=== PATIENT | female | born 1980 | race African-American/Black ===

== ENCOUNTER 2020-05-11 10:40 | Outpatient (REF) | payer OTHER, SELFPAY ==
--- NOTE | 2020-05-11 10:46 | XR_ITS ---
EXAMINATION: XR ANKLE, LEFT XR FOOT, LEFT CLINICAL INFORMATION: Left ankle injury. Left foot injury. COMPARISON: 10/31/2018 TECHNIQUE: 3 views of the left foot. 2 additional views of the left ankle. FINDINGS: Left foot: No fracture or dislocation. Alignment is anatomic. Joint spaces are maintained. The soft tissues are unremarkable. Left ankle: No fracture or dislocation. The ankle mortise is congruent. No ankle joint effusion. The soft tissues are unremarkable. XR/XR ankle LT 2V IMPRESSION: No fracture or malalignment involving the left ankle or foot.
--- NOTE | 2020-05-11 10:46 | XR_ITS ---
EXAMINATION: XR ANKLE, LEFT XR FOOT, LEFT CLINICAL INFORMATION: Left ankle injury. Left foot injury. COMPARISON: 10/31/2018 TECHNIQUE: 3 views of the left foot. 2 additional views of the left ankle. FINDINGS: Left foot: No fracture or dislocation. Alignment is anatomic. Joint spaces are maintained. The soft tissues are unremarkable. Left ankle: No fracture or dislocation. The ankle mortise is congruent. No ankle joint effusion. The soft tissues are unremarkable. XR/XR foot LT min 3V IMPRESSION: No fracture or malalignment involving the left ankle or foot.
== END 2020-05-11 10:41 | disposition home or self-care (01) ==
LOC: HO.HMGCX 10:40
PROVIDERS: PCP Internal Medicine; Visit Provider Internal Medicine
DX: S99.922A Unspecified injury of left foot, initial encounter (principal)
CPT/HCPCS: 73600; 73630

== ENCOUNTER 2020-05-29 08:37 | Emergency (ER) | payer OTHER, SELFPAY ==
[2020-05-29 09:10] VITALS: BP 114/71; PULSE 88; RESP 16; TEMP 36.6; O2SAT 98; BMI 21.4
--- NOTE | 2020-05-29 09:29 | ED_ITS ---
HPI - Skin/Abscess/Foreign Bdy General Chief complaint: Skin/Abscess/Foreign Body Stated complaint: breast pain Time Seen by Provider: 05/29/20 08:55 Source: patient Mode of arrival: ambulatory History of Present Illness HPI narrative: 40-year-old female with past medical history of bipolar, left breast abscess/ pain, narcotic dependence, presenting to ED complaining of continued acute on chronic left breast pain. [facility] send patient to ED. Reports used to follow w/Dr. Garcia, however was discharged from service, scheduled to see pain management in June referral from PCP. PCP has been managing pts pain with oxycodone. reports chronic /intermittent drainage from left breast. Denies injury/trauma, fever/chills MD complaint: other Related Data Home Medications Medication Instructions Recorded Confirmed fluorometholone 0.1 % eye drp OPHTHALMIC (EYE) 04/11/20 05/09/20 drops,suspension levonorgestrel 20 mcg/24 hours (6 0 device VAGINAL ONCE 04/11/20 05/09/20 yrs) 52 mg intrauterine device medroxyprogesterone 10 mg tablet mg PO 04/11/20 05/09/20 meloxicam 7.5 mg tablet 7.5 mg PO DAILY 04/11/20 05/09/20 Allergies Allergy/AdvReac Type Severity Reaction Status Date / Time aspirin [ASA] Allergy Unknown ANAPHYLAXIS Verified 05/09/20 15:28 quetiapine [From SEROQUEL] Allergy Unknown TACHYCARDIA Verified 05/09/20 15:28 seafood Allergy Unknown Anaphylaxis Verified 05/09/20 15:28 trazodone [TRAZODONE] Allergy Unknown SWELLING, Verified 05/09/20 15:28 inadequate response, inadequate response risperidone [Risperdal] AdvReac Unknown inadequate Verified 05/09/20 15:28 response Review of Systems Review of Systems: Constitutional: No Weight loss, No Fever, No Chills Cardiovascular: No Chest Pain, No SOB Respiratory: No Cough Musculoskeletal: No joint pain, No Myalgias, No Joint Swelling Skin: No skin lesions, No rash, +L breast pain Yes all other systems are reviewed and are negative PMFSH Past Medical History Attestation statement: The following information was validated with the patient. Medical History (Updated 05/29/20 @ 09:29 by JOE Thomson) Bipolar 1 disorder Breast abscess Breast pain, left Injury of foot, right Left eye trauma Narcotic dependence Pain management Plantar warts Right ankle injury Subareolar breast abscess Tobacco abuse Surgical History History of section History of sinus surgery History of tubal ligation Family History Family History Father Diabetes mellitus Mother No problems noted. Maternal Grandfather No problems noted. Maternal Grandmother HTN (hypertension) Cancer Breast cancer History of mastectomy Paternal Grandmother Stroke Paternal Grandfather No problems noted. Maternal Aunt Diabetes mellitus HTN (hypertension) Maternal Uncle No problems noted. Paternal Aunt No problems noted. Paternal Uncle Cancer Throat cancer Lung cancer Brother No problems noted. Sister No problems noted. Sister No problems noted. Sister No problems noted. Son No problems noted. Daughter No problems noted. Daughter No problems noted. Social History Social History Alcohol intake: never Smoking Status: Current every day smoker Cigarettes Per Day: 3 Advance Directives: No Advance Directives Information Provided: No Physical Exam Vital Signs: Vital Signs: Last Vital Signs Temp 98 F 05/29/20 09:10 Pulse 88 05/29/20 09:10 Resp 16 05/29/20 09:10 BP 114/71 05/29/20 09:10 Pulse Ox 98 05/29/20 09:10 Body Mass Index 21.4 Const: General: cooperative and healthy appearing Orientation/consciousness: patient oriented x3 Limitations: no limitations HENMT: Head: Yes normal to inspection Ears: hearing grossly normal bilaterally General nose exam: Normal external nose present Face and sinus: Yes normal facial exam Eyes: General: appearance normal, both eyes and all related structures EOM: EOMs intact bilaterally Neck: Neck: Yes normal visual inspection and Yes no meningeal signs Chest: Other: left nipple with chronic postsurgical skin changes. +ttp to L areola, no cellulitis /erythema, no fluctuance or induration. No expressible drainage. No appreciable masses or lymphadenopathy Resp: Effort & Inspection: normal respiratory effort Cardio: Rate: regular rate GI: Inspection: Yes normal to inspection Skin: Rashes: no rashes Wounds: no wounds Neuro: General: patient oriented x3 and no meningeal signs Gait exam (Neuro): Normal gait present Extrem: General: Yes normal to inspection Course Course Course Narrative: -discussed with patient at length she needs follow-up with her primary care doctor & pain management as was just given 90 pills of Oxycodone on 05/09/2020 and should not be out yet -patient unhappily left the emergency department after I informed her I would not refill her opiate pain medication MDM - Skin/Abscess/Foreign Bdy MDM Narrative Medical decision making narrative: patient requesting more narcotic pain medication. No active signs of infection or expressible drainage Per chart review patient just received 90 pills of oxycodone on 05/09, had lengthy discussion with patient and aerial photograph interpreter stating cannot refill narcotic medications, needs to see PCP/pain management Discharge Plan Discharge Clinical Impression: Breast pain, left Patient Disposition: Home, Self-Care Additional Instructions: you need to follow-up with her primary care doctor and pain management You should also follow-up with your breast surgeon Prescriptions: No Action meloxicam 7.5 mg tablet 7.5 mg PO DAILY RF: 0 fluorometholone 0.1 % drops,suspension ophthalmic (eye) RF: 0 Mirena 20 mcg/24 hours (5 yrs) 52 mg intrauterine device 0 device vaginal ONCE RF: 0 medroxyprogesterone 10 mg tablet PO RF: 0 Referrals: Amadeo Alvarado MD [Primary Care Provider] - 2 days
--- NOTE | 2020-05-29 09:50 | PC.NURSE ---
per provider, pt immediately seen eloping following primary evaluation. this rn in to give discharge paperwork, pt not present in room or nearby restroom
== END 2020-05-29 09:53 | disposition home or self-care (01) ==
PROVIDERS: Emergency Provider Emergency Medicine; PCP Internal Medicine
DX: N64.4 Mastodynia (principal); Z76.5 Malingerer [conscious simulation]
CPT/HCPCS: 99283

== ENCOUNTER 2020-06-19 23:21 | Emergency (ER) | payer OTHER, SELFPAY ==
[2020-06-19 23:25] VITALS: BP 159/88; PULSE 72; RESP 18; TEMP 36.8; O2SAT 100; BMI 25.7
--- NOTE | 2020-06-20 | ECG_ITS ---
Test Reason : VOMITING Blood Pressure : / mmHG Vent. Rate : 053 BPM Atrial Rate : 053 BPM P-R Int : 186 ms QRS Dur : 078 ms QT Int : 456 ms P-R-T Axes : 081 022 032 degrees QTc Int : 427 ms Sinus bradycardia with sinus arrhythmia Otherwise normal ECG No previous ECGs available Referred By: Keely Day Electronically Signed By:JONI JIMENES
--- NOTE | 2020-06-20 00:09 | ED.GENADULT ---
HPI - General Adult General Chief complaint: General Medical Stated complaint: abd pain vomiting Time Seen by Provider: 06/19/20 23:33 Source: EMS Mode of arrival: EMS Limitations: no limitations History of Present Illness HPI narrative: Patient comes emergency room complaining pain. Initially, patient called EMS because she was complaining of right-sided breast pain. Patient states that she has not been taking her prescribed oxycodone because of the vomiting and she has been using marijuana to help her with the pain. Patient also has history of cyclical vomiting. Patient pulled out the IV line that EMS placed. When I spoke to the patient, she states that does not feel well, is nauseous, had vomiting, at this time denies breast pain. complaint: Vomiting Related Data Home Medications Medication Instructions Recorded Confirmed fluorometholone 0.1 % eye drp OPHTHALMIC (EYE) 04/11/20 06/06/20 drops,suspension levonorgestrel 20 mcg/24 hours (6 0 device VAGINAL ONCE 04/11/20 06/06/20 yrs) 52 mg intrauterine device medroxyprogesterone 10 mg tablet mg PO 04/11/20 06/06/20 meloxicam 7.5 mg tablet 7.5 mg PO DAILY 04/11/20 06/06/20 Previous Rx's Medication Instructions Recorded oxycodone 5 mg tablet 5 mg PO TID PRN 30 Days #90 tab 06/08/20 ondansetron HCl [Zofran] 4 mg PO Q6H PRN #14 tab 06/20/20 Allergies Allergy/AdvReac Type Severity Reaction Status Date / Time aspirin [ASA] Allergy Unknown ANAPHYLAXIS Verified 05/09/20 15:28 quetiapine [From SEROQUEL] Allergy Unknown TACHYCARDIA Verified 05/09/20 15:28 seafood Allergy Unknown Anaphylaxis Verified 05/09/20 15:28 trazodone [TRAZODONE] Allergy Unknown SWELLING, Verified 05/09/20 15:28 inadequate response, inadequate response risperidone [Risperdal] AdvReac Unknown inadequate Verified 05/09/20 15:28 response [facility] Past Medical History Medical History Bipolar 1 disorder Breast abscess Breast pain, left Injury of foot, right Left eye trauma Narcotic dependence Pain management Plantar warts Right ankle injury Subareolar breast abscess Tobacco abuse Surgical History History of section History of sinus surgery History of tubal ligation Family History Family History Father Diabetes mellitus Mother No problems noted. Maternal Grandfather No problems noted. Maternal Grandmother HTN (hypertension) Cancer Breast cancer History of mastectomy Paternal Grandmother Stroke Paternal Grandfather No problems noted. Maternal Aunt Diabetes mellitus HTN (hypertension) Maternal Uncle No problems noted. Paternal Aunt No problems noted. Paternal Uncle Cancer Throat cancer Lung cancer Brother No problems noted. Sister No problems noted. Sister No problems noted. Sister No problems noted. Son No problems noted. Daughter No problems noted. Daughter No problems noted. Social History Social History Alcohol intake: never Smoking Status: Current every day smoker Cigarettes Per Day: 3 Advance Directives: No Advance Directives Information Provided: No Physical Exam Vital Signs: Vital Signs: Last Vital Signs Temp 97.8 F 06/20/20 02:00 Pulse 43 L 06/20/20 02:00 Resp 16 06/20/20 02:00 BP 164/60 H 06/20/20 02:00 Pulse Ox 100 06/20/20 02:00 Body Mass Index 25.7 Course Course Course Narrative: When I walked into the patient's room, I personally saw the patient putting her fingers into her mouth and making herself vomit. The patient's nurse reports that before I walked in, the nurse had to ask the patient 4 times to not stick her fingers in her mouth. Per mass pat, patient had a prescription sent to the pharmacy on 06/08/[address] Amadeo Alvarado, for 90 tablets of oxycodone. Patient states that she still has several tablets and has been taking them as prescribed until today because of the vomiting. The patient's nurse states that she has to constantly remind the patient not to make herself vomit. Patient is NPO at this time, however patient keeps going to the bathroom and drinking water from the faucet and then self induces vomiting Toradol was given to the patient on arrival for pain, at this time, patient had not reported hematemesis. Pt stats that the last time that she vomited, she saw bloody streaks, no blood clots or isa blood. I did not see any visible blood in the last bag of vomit, but it was sent to the lab, it was positive for occult blood. Stool occult blood test was negative. Streaks of blood likely secondary to forceful retching, at this time, patient's hemoglobin is stable 13.3, a Malou Carter tear is not suspected at this time. H&H will be recheck in 2 hours. Patient was giving a GI cocktail and 1 tablet of oxycodone 5 mg which is the patient's home dose. Haldol IM x1 given, if better, pt may be d/c home H&H stable, chest x-ray shows no free air under the diaphragm. At this time, patient states that she is still nauseous, no abdominal pain Sign out given to Dr. House Medical Decision Making Lab Data Result diagrams: 06/20/20 02:45 06/20/20 00:24 Labs: Lab Results 06/20/20 06/20/20 06/20/20 Range/Units 00:18 00:24 00:24 WBC 10.9 H (4.8-10.8) X10*3/uL RBC 4.00 L (4.20-5.50) X10*6/uL Hgb 13.3 (12.0-16.0) g/dl Hct 38.8 (37-47) % MCV 97.0 (80-98) fL MCH 33.3 H (27.0-33.0) pg MCHC 34.3 (31.0-35.0) g/dl RDW 12.2 (11.0-16.0) % Plt Count 199 (160-400) X10*3/uL MPV 10.8 (9.4-12.3) fL Immature Gran % (Auto) 0.3 (0.0-0.4) % Neut % (Auto) 80.5 H (45-73) % Lymph % (Auto) 13.1 L (20-40) % [place] % (Auto) 4.9 (2-11) % Eos % (Auto) 0.5 (0-4) % Baso % (Auto) 0.7 (0-2) % Lymph # (Auto) 1.4 (1.2-4.9) X10*3/uL [place] # (Auto) 0.5 (0.1-1.2) X10*3/uL Eos # (Auto) 0.1 (0.0-0.4) X10*3/uL Baso # (Auto) 0.1 (0.0-0.2) X10*3/uL Abs Immat Gran (auto) 0.03 (0.00-0.03) X10*3/uL Absolute Neuts (auto) 8.8 H (2.0-8.3) X10*3/uL Absolute Nucleated RBC 0.000 (0.0-0.012) X10*3/uL Nucleated RBC % (auto) 0.0 (0.0-0.2) /100WBC Sodium 144 (135-145) mmol/L Potassium 3.8 (3.3-5.1) mmol/l Chloride 106 (96-108) mmol/L Carbon Dioxide 28 (22-29) mmol/L Anion Gap 14 (12-20) BUN 10 (9-16) mg/dL Creatinine 0.91 (0.5-1.4) mg/dL Estim Creat Clear Calc 69.2 Estimated GFR > 60 Random Glucose 131 H (60-115) mg/dL Calcium 9.3 (8.4-10.2) mg/dL Total Bilirubin 0.5 (0.0-1.0) mg/dL Direct Bilirubin 0.2 (0.0-0.5) mg/dL AST 40 H (5-31) U/L ALT 20 (0-31) U/L Alkaline Phosphatase 52 (39-117) U/L Total Protein 7.4 (6.5-8.0) g/dL Albumin 4.7 (3.5-5.0) g/dL Lipase 27 (8-78) U/L Gastric Occult Blood POS H (NEG) Stool Occult Blood (NEG) 06/20/20 06/20/20 Range/Units 02:45 02:45 WBC (4.8-10.8) X10*3/uL RBC (4.20-5.50) X10*6/uL Hgb 12.4 (12.0-16.0) g/dl Hct 36.5 L (37-47) % MCV (80-98) fL MCH (27.0-33.0) pg MCHC (31.0-35.0) g/dl RDW (11.0-16.0) % Plt Count (160-400) X10*3/uL MPV (9.4-12.3) fL Immature Gran % (Auto) (0.0-0.4) % Neut % (Auto) (45-73) % Lymph % (Auto) (20-40) % [place] % (Auto) (2-11) % Eos % (Auto) (0-4) % Baso % (Auto) (0-2) % Lymph # (Auto) (1.2-4.9) X10*3/uL [place] # (Auto) (0.1-1.2) X10*3/uL Eos # (Auto) (0.0-0.4) X10*3/uL Baso # (Auto) (0.0-0.2) X10*3/uL Abs Immat Gran (auto) (0.00-0.03) X10*3/uL Absolute Neuts (auto) (2.0-8.3) X10*3/uL Absolute Nucleated RBC (0.0-0.012) X10*3/uL Nucleated RBC % (auto) (0.0-0.2) /100WBC Sodium (135-145) mmol/L Potassium (3.3-5.1) mmol/l Chloride (96-108) mmol/L Carbon Dioxide (22-29) mmol/L Anion Gap (12-20) BUN (9-16) mg/dL Creatinine (0.5-1.4) mg/dL Estim Creat Clear Calc Estimated GFR Random Glucose (60-115) mg/dL Calcium (8.4-10.2) mg/dL Total Bilirubin (0.0-1.0) mg/dL Direct Bilirubin (0.0-0.5) mg/dL AST (5-31) U/L ALT (0-31) U/L Alkaline Phosphatase (39-117) U/L Total Protein (6.5-8.0) g/dL Albumin (3.5-5.0) g/dL Lipase (8-78) U/L Gastric Occult Blood (NEG) Stool Occult Blood NEG (NEG) Imaging Data Chest x-ray: Radiologist's impression: Cardiac leads overlie the chest. The lungs are well expanded. There is no focal consolidation, edema, or effusion. No pneumothorax. The cardiomediastinal silhouette is within normal limits. No acute osseous abnormality. No free air seen under the diaphragm. XR/XR chest 1V IMPRESSION: Clear lungs. No free intraperitoneal air noted. ECG Data Attestation: I personally reviewed and interpreted this ECG as follows: (Sinus bradycardia, heart rate 53, QTC 427, no ST segment depressions or inversions) Discharge Plan Discharge Clinical Impression: Cyclical vomiting Patient Disposition: Home, Self-Care Instructions: Cyclic Vomiting Syndrome (ED) Additional Instructions: Please follow-up with your primary care physician tomorrow. If you have any worsening or new symptoms, please return to the emergency room or call 911 Prescriptions: New ondansetron HCl [Zofran] 4 mg tablet 4 mg PO Q6H PRN (Reason: nausea and vomiting) Qty: 14 RF: 0 No Action oxycodone 5 mg tablet 5 mg PO TID PRN (Reason: pain) 30 Days Qty: 90 RF: 0 meloxicam 7.5 mg tablet 7.5 mg PO DAILY RF: 0 fluorometholone 0.1 % drops,suspension ophthalmic (eye) RF: 0 Mirena 20 mcg/24 hours (5 yrs) 52 mg intrauterine device 0 device vaginal ONCE RF: 0 medroxyprogesterone 10 mg tablet PO RF: 0
[2020-06-20] MEDS: 0.9 % Sodium Chloride 1,000 ML 999 ML IVCONT (00:29)
[2020-06-20] MEDS: Ketorolac Tromethamine 15 MG/ML VIAL IVPUSH (00:30)
[2020-06-20] MEDS: ondansetron HCL 4 MG/2 ML VIAL IVPUSH (00:30)
[2020-06-20 00:38] LABS: MANUAL DIFF FLAG NO
[2020-06-20 00:45] LABS: Basophils Absolute Auto 0.1 X10*3/uL (0.0-0.2); Basophils Percent Auto 0.7 % (0-2); Eosinophils Absolute Auto 0.1 X10*3/uL (0.0-0.4); Eosinophils Percent Auto 0.5 % (0-4); Hematocrit 38.8 % (37-47); Hemoglobin 13.3 g/dl (12.0-16.0); Imm Gran Abs Auto 0.03 X10*3/uL (0.00-0.03); Imm Gran Pct Auto 0.3 % (0.0-0.4); Lymphocytes Absolute Auto 1.4 X10*3/uL (1.2-4.9); Lymphocytes Percent Auto 13.1 % (20-40); Mean Corpuscular HGB Conc 34.3 g/dl (31.0-35.0); Mean Corpuscular Hemoglobin 33.3 pg (27.0-33.0); Mean Platelet Volume 10.8 fL (9.4-12.3); Monocytes Absolute Auto 0.5 X10*3/uL (0.1-1.2); Monocytes Percent Auto 4.9 % (2-11); Neutrophils Absolute Auto 8.8 X10*3/uL (2.0-8.3); Neutrophils Percent Auto 80.5 % (45-73); Platelet Count 199 X10*3/uL (160-400); Red Cell Distribution Width 12.2 % (11.0-16.0); White Blood Count 10.9 X10*3/uL (4.8-10.8)
[2020-06-20 01:02] LABS: GASOB Int Neg Ctl Valid YES
[2020-06-20 01:03] LABS: Alanine Aminotransferase 20 U/L (0-31); Albumin Level 4.7 g/dL (3.5-5.0); Alkaline Phosphatase 52 U/L (39-117); Anion Gap 14 (12-20); Aspartate Amino Transferase 40 U/L (5-31); Bilirubin Direct 0.2 mg/dL (0.0-0.5); Bilirubin Total 0.5 mg/dL (0.0-1.0); Blood Urea Nitrogen 10 mg/dL (9-16); Calcium 9.3 mg/dL (8.4-10.2); Carbon Dioxide 28 mmol/L (22-29); Chloride 106 mmol/L (96-108); Creatinine Clr Calc Pharmacy 69.2; Estimated Glomerular Filt Rate > 60; Glucose Random 131 mg/dL (60-115); Lipase 27 U/L (8-78); Potassium 3.8 mmol/l (3.3-5.1); Sodium 144 mmol/L (135-145); Total Protein 7.4 g/dL (6.5-8.0)
[2020-06-20 01:03] LABS: GASOB Int Pos Ctl Valid YES; GASOB Lot 20391; Occult Blood Gastric POS (NEG)
[2020-06-20 02:00] VITALS: BP 164/60; PULSE 43; RESP 16; TEMP 36.6; O2SAT 100
--- NOTE | 2020-06-20 02:00 | XR_ITS ---
Patient name: Melida Tatum Date of : 1980 EXAMINATION: XR CHEST CLINICAL INFORMATION: Rule out free air. COMPARISON: None TECHNIQUE: Frontal upright view of the chest was obtained. FINDINGS: Cardiac leads overlie the chest. The lungs are well expanded. There is no focal consolidation, edema, or effusion. No pneumothorax. The cardiomediastinal silhouette is within normal limits. No acute osseous abnormality. No free air seen under the diaphragm. XR/XR chest 1V IMPRESSION: Clear lungs. No free intraperitoneal air noted.
[2020-06-20] MEDS: Lidocaine HCl Viscous 2 % 15 ML SOLUTION MUCOUS MEM (02:23)
[2020-06-20] MEDS: Magnesium Hydrox/Alum Hydrox 30 ML ORAL.SUSP PO (02:23)
[2020-06-20] MEDS: Famotidine/PF 20 MG/2 ML VIAL IVPUSH (02:24)
[2020-06-20 02:54] LABS: Hematocrit 36.5 % (37-47); Hemoglobin 12.4 g/dl (12.0-16.0)
[2020-06-20 03:05] LABS: OBS Int Ctl Valid YES; OBS1 NEG (NEG)
[2020-06-20 04:00] VITALS: PULSE 41; RESP 16
[2020-06-20] MEDS: Haloperidol Lactate 5 MG/ML VIAL IM (04:04)
--- NOTE | 2020-06-20 04:10 | PC.NURSE ---
pt has severe nausea and vomiting persisiting after multiple dosages of zofran, phengan, and GI cocktail. Patient medicated with IM Haldo for Cyclical vomitng. Pt understands that she is barred from bathroom at this time. Physician previously enforced education to use bedside commode due to language barrier. monitoring for effect at this time.
--- NOTE | 2020-06-20 05:31 | PC.NURSE ---
pt now awake at this time. patient continues to attempt self inducing vomiting. patient reports the pain is too great. reduced stimulus environment provided. provider updated.
[2020-06-20 05:56] VITALS: BP 108/86; PULSE 46; RESP 15; TEMP 36.6; O2SAT 95
[2020-06-20] MEDS: LORazepam 1 MG TABLET PO (06:15)
== END 2020-06-20 06:23 | disposition home or self-care (01) ==
PROVIDERS: Emergency Provider Emergency Medicine
DX: R11.15 Cyclical vomiting syndrome unrelated to migraine (principal); F17.200 Nicotine dependence, unspecified, uncomplicated; Z71.6 Tobacco abuse counseling; Z79.899 Other long term (current) drug therapy
CPT/HCPCS: 36415; 71045; 80048; 80076; 82271; 82272; 83690; 85014; 85018; 85025; 93005; 96361; 96372; 96374; 96375; 99284; J1885; J2405

== ENCOUNTER → 2020-07-03 09:35 | Outpatient (BNVA) | payer OTHER, SELFPAY | PROVIDERS: PCP Internal Medicine; Visit Provider Anesthesiology | DX: Z76.89 Persons encountering health services in other specified circumstances (principal) ==

== ENCOUNTER 2020-08-15 12:18 | Outpatient (REF) | payer OTHER, SELFPAY | END 2020-08-15 12:19 | disposition home or self-care (01) | LOC: HO.LAB 12:18 | PROVIDERS: Visit Provider Nurse Practitioner Family | DX: N64.4 Mastodynia (principal) | CPT/HCPCS: 87071; 87205 ==

== ENCOUNTER 2020-11-29 10:21 | Outpatient (REF) | payer OTHER, SELFPAY ==
--- NOTE | ~2020-11-29 | MM_ITS ---
EXAMINATION: MM SCREENING DIGITAL BREAST TOMOSYNTHESIS, BILATERAL CLINICAL INFORMATION: Screening. Asymptomatic. The lifetime risk of breast cancer based on the Tyrer-Cuzick Model is 16.1%. COMPARISON: Mammography: 10/13/2019 TECHNIQUE: Digital breast tomosynthesis is performed in both the craniocaudal and mediolateral oblique views along with computer-aided detection (CAD). Synthesized 2D images are generated from the tomosynthesis. FINDINGS: The breasts are heterogeneously dense, which may obscure small masses (ACR BI-RADS breast composition Category c). There is a stable parenchymal pattern within the right breast with no new abnormal dominant mass or suspicious grouping of microcalcifications. Within the deep central aspect on craniocaudal view only there is a lobular density measuring approximately 1 cm in diameter and lies approximately 10 cm from the nipple. Spot compression view and possible ultrasound is recommended. MM/MM tomosynthesis screening BI IMPRESSION: Left breast density for further evaluation as described. ASSESSMENT: BI-RADS 0: Incomplete - Need Additional Imaging Evaluation RECOMMENDATION: 1. Additional views of the left breast. 2. Targeted ultrasound if warranted after review of the additional views. 3. Radiology department staff will contact the patient for additional imaging. This patient's information was entered into a reminder system with a target due date for their next mammogram.
== END 2020-11-29 10:22 | disposition home or self-care (01) ==
LOC: HO.MAMMO 10:21
PROVIDERS: Visit Provider Internal Medicine
DX: Z12.31 Encounter for screening mammogram for malignant neoplasm of breast (principal)
CPT/HCPCS: 77063; 77067

== ENCOUNTER 2020-12-07 08:28 | Outpatient (REF) | payer OTHER, SELFPAY ==
--- NOTE | ~2020-12-07 | MM_ITS ---
EXAMINATION: MM DIAGNOSTIC DIGITAL BREAST TOMOSYNTHESIS, LEFT US DIAGNOSTIC ULTRASOUND BREAST, LEFT CLINICAL INFORMATION: Recall from screening for question small lobulated density posterior central upper breast. COMPARISON: Mammography: 11/29/2020, 10/13/2019 TECHNIQUE: Digital breast tomosynthesis is performed. 2D images are generated from the tomosynthesis. The following views are obtained: Spot CC, spot MLO, rolled CC x2. Ultrasound is targeted to the posterior upper breast using grayscale imaging and color Doppler without and with harmonics. Additional ultrasound imaging performed subareolar left breast as patient noted at time of appointment persistent intermittent drainage near left nipple (prior history episodic periareolar cutaneous drainage left breast status post surgical drainage 10/27/2019). FINDINGS: There are scattered areas of fibroglandular density (ACR BI-RADS breast composition Category b). There is questionable small smooth nodule posterior breast on one of the rolled views measuring 0.7 cm diameter. Otherwise, there is no mass and no architectural abnormality or asymmetric density. Ultrasound confirms oval simple cyst 12:00 position 11 cm from nipple corresponding to the additional mammographic views and measuring 0.7 x 0.6 cm. There is fine peripheral clot. No internal septation or solid component or associated color flow. Additional ultrasound targeted to the subareolar breast demonstrates a small circumscribed complicated cystic lesion just beneath the skin 5:00 position measuring 0.5 x 0.4 cm. This shows low level internal echoes. Mild increased through-transmission of sound. There is an adjacent circumscribed intradermal hypodensity of similar appearance measuring 0.5 cm across by 0.2 cm thickness. There is no associated internal or peripheral color flow or hyperemia. No duct ectasia. The recent screening mammography shows no skin thickening or coarsening of the Mert's ligaments retroareolar left breast. Results are discussed with the patient at time of visit. MM/MM tomosynthesis added views L IMPRESSION: 1. Incidental 0.7 cm cyst posterior 12:00 position corresponding to finding on recent screening mammography. 2. Additional imaging targeted to the left areola demonstrates avascular complicated cyst 5:00 areolar measuring 0.5 cm and adjacent intradermal avascular hypoechoic lesion 0.5 x 0.2 cm. No hyperemia. ASSESSMENT: BI-RADS 2: Benign RECOMMENDATION: 1. Patient should be managed based on the clinical impression for the clinical finding of episodic left areolar cutaneous drainage. Suggest follow-up surgical appointment. 2. Otherwise, routine annual screening mammography. This patient's information was entered into a reminder system with a target due date for their next mammogram.
== END 2020-12-07 08:29 | disposition home or self-care (01) ==
LOC: HO.MAMMO 08:28
PROVIDERS: Visit Provider Internal Medicine
DX: R92.2 Inconclusive mammogram (principal)
CPT/HCPCS: 76642; 77061; 77065

== ENCOUNTER → 2020-12-08 08:46 | Outpatient (BNVA) | payer OTHER, SELFPAY | PROVIDERS: PCP Internal Medicine; Visit Provider Surgery | DX: N64.4 Mastodynia (principal); G89.29 Other chronic pain; Z80.3 Family history of malignant neoplasm of breast | CPT/HCPCS: 99212 ==

== ENCOUNTER 2020-12-18 15:04 | Outpatient (REF) | payer OTHER, SELFPAY ==
--- NOTE | ~2020-12-18 | MR_ITS ---
EXAMINATION: MR BREAST WITHOUT AND WITH CONTRAST, BILATERAL CLINICAL INFORMATION: 40-year-old for high-risk screening, family history and chronic left breast pain COMPARISON: Correlation to mammogram of 11/29/2020 and mammogram and ultrasound of 12/07/2020 TECHNIQUE: Imaging was performed with a dedicated breast coil. Prior to the administration of contrast, bilateral axial T1 and bilateral axial T2 weighted sequences were obtained. After the uneventful administration of?5.5 mL of Gadavist, dynamic contrast-enhanced VIBRANT series through the breasts in the axial plane were performed. Subtracted images were performed and reviewed. A delayed sagittal sequence through both breasts was acquired. Additionally, CAD post-processing, including maximum intensity projections, 3-D reconstructions and kinetic analysis, were performed an independent workstation and reviewed by the interpreting radiologist is a portion of this exam. FINDINGS: The patient's fibroglandular tissue undergoes significant background enhancement. LEFT BREAST: Significant background enhancement diminishes the overall sensitivity of this examination. There are no areas of mass or non-mass enhancement suspicious of malignancy. There are no secondary signs of malignancy. There is an oval T2 bright mass in the 12 o'clock position corresponding to a cyst described on ultrasound. There are no additional findings on kinetic curve analysis. RIGHT BREAST: Similar to the contralateral breast there is significant background enhancement which limits the sensitivity of this examination. There are no areas of mass or non-mass enhancement suspicious of malignancy. There are no secondary signs of malignancy. There are no additional findings on T2-weighted imaging or kinetic curve analysis. There is no suspicious internal mammary chain or axillary adenopathy. Limited views of the chest and abdomen are unremarkable. MR/MR breast BI wo/w con IMPRESSION: Significant background enhancement which limits the sensitivity of this study. No suspicious MR findings. ASSESSMENT: LEFT BREAST: BI-RADS 2 benign RIGHT BREAST: BI-RADS 2 benign RECOMMENDATIONS: Routine mammographic imaging as per most recent study and MRI as per high-risk protocol.
== END 2020-12-18 15:05 | disposition home or self-care (01) ==
LOC: HO.MRI 15:04
PROVIDERS: PCP Internal Medicine; Visit Provider Surgery
DX: N64.4 Mastodynia (principal); G89.29 Other chronic pain; Z80.3 Family history of malignant neoplasm of breast
CPT/HCPCS: 77049; A9585

== ENCOUNTER 2021-01-08 14:02 | Outpatient (REF) | payer OTHER, SELFPAY ==
--- NOTE | ~2021-01-08 | MR_ITS ---
EXAMINATION: MR BREAST WITHOUT AND WITH CONTRAST, BILATERAL CLINICAL INFORMATION: 40-year-old for high-risk screening, family history and chronic left breast pain COMPARISON: Correlation to mammogram of 11/29/2020 and mammogram and ultrasound of 12/07/2020 TECHNIQUE: Imaging was performed with a dedicated breast coil. Prior to the administration of contrast, bilateral axial T1 and bilateral axial T2 weighted sequences were obtained. After the uneventful administration of?5.5 mL of Gadavist, dynamic contrast-enhanced VIBRANT series through the breasts in the axial plane were performed. Subtracted images were performed and reviewed. A delayed sagittal sequence through both breasts was acquired. Additionally, CAD post-processing, including maximum intensity projections, 3-D reconstructions and kinetic analysis, were performed an independent workstation and reviewed by the interpreting radiologist is a portion of this exam. FINDINGS: The patient's fibroglandular tissue undergoes significant background enhancement. LEFT BREAST: Significant background enhancement diminishes the overall sensitivity of this examination. There are no areas of mass or non-mass enhancement suspicious of malignancy. There are no secondary signs of malignancy. There is an oval T2 bright mass in the 12 o'clock position corresponding to a cyst described on ultrasound. There are no additional findings on kinetic curve analysis. RIGHT BREAST: Similar to the contralateral breast there is significant background enhancement which limits the sensitivity of this examination. There are no areas of mass or non-mass enhancement suspicious of malignancy. There are no secondary signs of malignancy. There are no additional findings on T2-weighted imaging or kinetic curve analysis. There is no suspicious internal mammary chain or axillary adenopathy. Limited views of the chest and abdomen are unremarkable. MR/MR breast BI wo/w con IMPRESSION: Significant background enhancement which limits the sensitivity of this study. No suspicious MR findings. ASSESSMENT: LEFT BREAST: BI-RADS 2 benign RIGHT BREAST: BI-RADS 2 benign RECOMMENDATIONS: Routine mammographic imaging as per most recent study and MRI as per high-risk protocol.
== END 2021-01-08 14:03 | disposition home or self-care (01) ==
LOC: HO.MRI 14:02
PROVIDERS: PCP Internal Medicine; Visit Provider Surgery
DX: N64.4 Mastodynia (principal); G89.29 Other chronic pain; Z80.3 Family history of malignant neoplasm of breast
CPT/HCPCS: 77049; A9585

== ENCOUNTER → 2021-01-16 09:29 | Outpatient (BNVA) | payer OTHER, SELFPAY | PROVIDERS: PCP Internal Medicine; Referring Provider Internal Medicine; Visit Provider Surgery | DX: N64.4 Mastodynia (principal); G89.29 Other chronic pain; Z80.3 Family history of malignant neoplasm of breast | CPT/HCPCS: 99212 ==

== ENCOUNTER → 2021-03-08 13:34 | Outpatient (BNVA) | payer OTHER, SELFPAY | PROVIDERS: PCP Internal Medicine; Visit Provider Advanced Practice Midwife ==

== ENCOUNTER → 2021-03-09 11:19 | Outpatient (BNVA) | payer OTHER, SELFPAY | PROVIDERS: PCP Internal Medicine; Visit Provider Advanced Practice Midwife ==

== ENCOUNTER 2021-03-12 09:29 | Outpatient (REF) | payer OTHER, SELFPAY ==
[2021-03-12 10:16] LABS: Hematocrit 39.3 % (37-47); Hemoglobin 13.2 g/dl (12.0-16.0); Mean Corpuscular HGB Conc 33.6 g/dl (31.0-35.0); Mean Corpuscular Hemoglobin 32.1 pg (27.0-33.0); Mean Corpuscular Volume 95.6 fL (80-98); Mean Platelet Volume 10.6 fL (9.4-12.3); Platelet Count 203 X10*3/uL (160-400); Red Blood Count 4.11 X10*6/uL (4.20-5.50); Red Cell Distribution Width 13.1 % (11.0-16.0); White Blood Count 7.7 X10*3/uL (4.8-10.8)
[2021-03-12 11:31] LABS: Thyroid Stimulating Hormone 0.69 uIU/mL (0.32-4.0)
== END 2021-03-12 09:30 | disposition home or self-care (01) ==
LOC: HO.LAB 09:29
PROVIDERS: PCP Internal Medicine; Visit Provider Advanced Practice Midwife
DX: N93.9 Abnormal uterine and vaginal bleeding, unspecified (principal)
CPT/HCPCS: 36415; 84443; 85027

== ENCOUNTER 2021-03-27 14:28 | Outpatient (REF) | payer OTHER, SELFPAY ==
--- NOTE | ~2021-03-27 | US_ITS ---
EXAMINATION: US PELVIS CLINICAL INFORMATION: Abnormal uterine and vaginal bleeding. COMPARISON: None. TECHNIQUE: Ultrasound of the pelvis is performed using both transabdominal and transvaginal transducers along with Doppler. Transvaginal imaging is performed due to inadequate visualization transabdominally. FINDINGS: The uterus is anteverted and retroflexed. No focal uterine lesion is seen. Endometrial thickness is normal measuring 0.7 cm. There are small nabothian cysts in the cervix. The right ovary measures 3.8 x 1.6 x 3.8 cm. There is a new 1.9 x 1.7 x 1.5 cm complex cyst in the right ovary with low-level internal echoes. This may represent a hemorrhagic cyst. The left ovary measures 2.8 x 1.8 x 2.8 cm. There is a 2.7 x 1.4 x 2.1 cm slightly irregular-shaped cyst with single thin septation. This is similar to January 2020 exam. This shows no mural nodularity or color-flow. There is a small amount of fluid in the pelvis. There is a 5 mm cyst in the posterior cul-de-sac that has not been appreciated on prior exams. US/US pelvic and transvaginal IMPRESSION: Normal-appearing uterus. Bilateral ovarian cysts. New 1.9 x 1.7 x 1.5 cm complex right ovarian cyst with low-level internal echoes probably representing a hemorrhagic cyst. Slightly irregularly-shaped 2.7 x 1.4 x 2.1 cm cyst with single thin septation similar to January 2020 exam. Newly appreciated 5 mm cyst in the posterior cul-de-sac.
== END 2021-03-27 14:29 | disposition home or self-care (01) ==
LOC: HO.US 14:28
PROVIDERS: PCP Internal Medicine; Visit Provider Advanced Practice Midwife
DX: N93.9 Abnormal uterine and vaginal bleeding, unspecified (principal)
CPT/HCPCS: 76830; 76856

== ENCOUNTER 2021-05-09 15:28 | Emergency (ER) | payer OTHER, SELFPAY ==
[2021-05-09 15:34] VITALS: BP 138/84; PULSE 83; RESP 20; TEMP 37.1; O2SAT 100; BMI 23.1
== END 2021-05-09 16:48 | disposition left against medical advice (07) ==
PROVIDERS: Emergency Provider Emergency Medicine; PCP Internal Medicine
DX: N93.9 Abnormal uterine and vaginal bleeding, unspecified (principal)
CPT/HCPCS: 99281; 99282

== ENCOUNTER 2021-05-11 14:11 | Outpatient (REF) | payer OTHER, SELFPAY ==
[2021-05-13 14:08] LABS: CT PCR NOT DETECTED (Not Detect.); NG PCR NOT DETECTED (Not Detect.)
[2021-05-13 14:52] LABS: BV Int Neg Control Negative (Negative); BV Int Pos Control Positive (Positive)
== END 2021-05-11 14:12 | disposition home or self-care (01) ==
LOC: HO.LAB 14:11
PROVIDERS: PCP Internal Medicine; Visit Provider Advanced Practice Midwife
DX: N93.9 Abnormal uterine and vaginal bleeding, unspecified (principal); N83.299 Other ovarian cyst, unspecified side; F17.210 Nicotine dependence, cigarettes, uncomplicated
CPT/HCPCS: 58100; 81025; 87480; 87491; 87510; 87591; 87660; 88305

== ENCOUNTER → 2021-05-14 14:52 | Outpatient (BNVA) | payer OTHER, SELFPAY | PROVIDERS: PCP Internal Medicine; Visit Provider Advanced Practice Midwife | DX: N93.9 Abnormal uterine and vaginal bleeding, unspecified (principal) | CPT/HCPCS: 96372; 99211 ==

== ENCOUNTER → 2021-05-28 11:54 | Outpatient (BNVA) | payer OTHER, SELFPAY | PROVIDERS: PCP Internal Medicine; Visit Provider Advanced Practice Midwife ==

== ENCOUNTER 2021-07-26 12:45 | Outpatient (REF) | payer OTHER, SELFPAY ==
--- NOTE | ~2021-07-26 | US_ITS ---
EXAMINATION: US PELVIS CLINICAL INFORMATION: N83.291 - Other ovarian cyst, right side. Age 41. LMP uncertain. Prior x3 and tubal ligation. COMPARISON: Pelvic ultrasound 03/27/2021, 02/01/2020, 01/27/2019; CT abdomen and pelvis 01/23/2019 TECHNIQUE: Ultrasound of the pelvis is performed using both transabdominal and transvaginal transducers along with Doppler. Transvaginal imaging is performed due to inadequate visualization transabdominally. FINDINGS: Uterus: The uterus is retroverted and measures 8.2 x 3.5 x 4.0 cm. The double wall endometrial thickness is normal at 10 mm. The uterus is smooth in contour and has normal myometrial echogenicity. No visible fibroid. There are a few small nabothian cysts in the cervix, largest just under 5 mm. Adnexa: Both ovaries are visualized. There is normal color flow to the adnexa. There is no ovarian torsion. No interval pelvic ascites. Right ovary measures 3.2 x 1.6 x 1.7 cm. There is a dominant follicle within the right ovary measuring only 1.5 cm. No right adnexal mass. Left ovary measures 2.2 x 1.2 x 1.4 cm. There is a benign oblong anechoic cyst adjacent to the left ovary with fine avascular internal septation and overall size 2.8 x 0.9 x 2.2 cm. Prior measurements are 2.7 x 1.4 x 2.1 cm on ultrasound 03/27/2021; 2.6 x 1.6 x 2.4 cm on ultrasound 02/01/2020, and 3.7 x 2.4 x 3.1 cm on ultrasound 01/27/2019. This most likely represents an incidental peritoneal inclusion cyst. US/US pelvic and transvaginal IMPRESSION: -Uterus: Retroverted, unremarkable. -Right adnexa: Incidental dominant follicle only 1.5 cm. No adnexal mass or ascites. -Left adnexa: Benign oblong anechoic cyst adjacent to ovary with fine avascular internal septation similar to prior ultrasound exams, likely incidental peritoneal inclusion cyst. No additional imaging follow-up recommended.
== END 2021-07-26 12:46 | disposition home or self-care (01) ==
LOC: HO.US 12:45
PROVIDERS: PCP Internal Medicine; Visit Provider Advanced Practice Midwife
DX: N83.291 Other ovarian cyst, right side (principal)
CPT/HCPCS: 76830; 76856

== ENCOUNTER → 2021-08-01 11:05 | Outpatient (BNVA) | payer OTHER, SELFPAY | PROVIDERS: Visit Provider Advanced Practice Midwife | DX: N93.9 Abnormal uterine and vaginal bleeding, unspecified (principal) | CPT/HCPCS: 96372; 99211 ==

== ENCOUNTER → 2021-08-09 15:20 | Outpatient (BNVA) | payer OTHER, SELFPAY | PROVIDERS: Visit Provider Advanced Practice Midwife ==

== ENCOUNTER 2021-10-01 09:24 | Emergency (ER) | payer OTHER, SELFPAY ==
--- NOTE | ~2021-10-01 | XR_ITS ---
EXAMINATION: XR ANKLE, RIGHT CLINICAL INFORMATION: Right ankle injury COMPARISON: None TECHNIQUE: AP, lateral, and mortise views of the right ankle. FINDINGS: The bones and soft tissues are normal. No fracture. Alignment is anatomic. Joint spaces are maintained. No joint effusion. XR/XR ankle RT 2V IMPRESSION: Normal right ankle.
[2021-10-01 09:27] VITALS: BP 114/89; PULSE 88; RESP 18; TEMP 35.9; O2SAT 98; BMI 24.0
--- NOTE | 2021-10-01 09:40 | ED_ITS ---
HPI - General Adult General Chief complaint: Extremity Injury, Lower Stated complaint: r ankle inj Time Seen by Provider: 10/01/21 09:40 Source: patient and computer animator Mode of arrival: ambulatory Limitations: language barrier History of Present Illness HPI narrative: Patient is a 41 year old female presenting to the emergency department today with right ankle pain. Patient states that this morning, she slipped and fell, hitting her right ankle. Patient denies hitting her head with the incident. Patient denies any loss of consciousness from the incident. Patient denies any dizziness, lightheadedness, abdominal pain, nausea, vomiting, fever, chills, blurry vision, double vision, loss of vision, chest pain, difficulty breathing, shortness of breath, back pain, night sweats, pain with urination, increased urinary frequency, increased urinary urgency, blood in her urine or stool, syncope or a near syncopal episode, bowel incontinence, bladder incontinence, bowel retention, bladder retention, or any other complaints at this time. Onset (ago): hour(s) Location: right and lower extremity Radiation: non-radiation Severity: mild Severity scale (1-10): 3 Quality: dull Pain Consistency: constant Relieving factors: none Exacerbating factors: none Associated symptoms: denies other symptoms Treatments prior to arrival: none Related Data Previous Rx's Medication Instructions Recorded medroxyprogesterone 150 mg/mL 150 mg IM [id number] #1 ml 05/11/21 intramuscular suspension (Depo-Provera) Allergies Allergy/AdvReac Type Severity Reaction Status Date / Time aspirin [ASA] Allergy Unknown ANAPHYLAXIS Verified 09/21/21 11:34 quetiapine [From SEROQUEL] Allergy Unknown TACHYCARDIA Verified 09/21/21 11:34 seafood Allergy Unknown Anaphylaxis Verified 09/21/21 11:34 trazodone [TRAZODONE] Allergy Unknown SWELLING, Verified 09/21/21 11:34 inadequate response, inadequate response risperidone [Risperdal] AdvReac Unknown inadequate Verified 09/21/21 11:34 response Review of Systems Constitutional: Constitutional: Reports no additional constitutional complaints, Denies chills, Denies fever(s) and Denies night sweats Eyes: Eyes: Reports no additional eye complaints, Denies blurry vision, Denies change in vision, Denies diplopia, Denies eye discharge, Denies loss of vision and Denies eye pain ENT: Denies dizziness Cardiovascular: Cardiovascular: Reports no additional cardiovascular complaints, Denies chest pain, Denies lightheadedness, Denies Loss of Consciousness and Denies dyspnea Respiratory: Respiratory: Reports no additional respiratory complaints and Denies dyspnea Gastrointestinal: Gastrointestinal: Reports no additional gastrointestinal complaints, Denies abdominal pain, Denies melena, Denies hematochezia, Denies change in bowel habits and Denies change in stool character Genitourinary: Genitourinary: Denies hematuria, Denies urinary frequency, Denies dysuria, Denies urinary incontinence, Denies urinary hesitancy and Denies urinary urgency Musculoskeletal: Musculoskeletal: Reports no additional musculoskeletal complaints, Denies numbness and Denies tingling Comments: right ankle pain Neurologic: Denies dizziness, Denies loss of vision, Denies numbness and Denies tingling Psychiatric: Psychiatric: Reports no additional psychiatric complaints Endocrine: Endocrine: Reports no additional endocrine complaints Hematologic/Lymphatic: Hematologic/Lymphatic: Reports no additional hematologic/lymphatic complaints Allergic/Immunologic: Allergic/Immunologic: Reports no additional allergic/immunologic complaints [facility] Past Medical History Attestation statement: The following information was validated with the patient. Source: old records reviewed Medical History Bipolar 1 disorder Borderline personality disorder Breast abscess Breast pain, left Injury of foot, right Left eye trauma Narcotic dependence Pain management Plantar warts Right ankle injury Subareolar breast abscess Tobacco abuse Surgical History History of section History of sinus surgery History of tubal ligation Family History Family History Father Diabetes mellitus Mother No problems noted. Maternal Grandfather No problems noted. Maternal Grandmother HTN (hypertension) Cancer, Onset Age: 40 Breast cancer History of mastectomy Paternal Grandmother Stroke Paternal Grandfather No problems noted. Maternal Aunt Diabetes mellitus HTN (hypertension) Maternal Uncle No problems noted. Paternal Aunt No problems noted. Paternal Uncle Cancer Throat cancer Lung cancer Brother No problems noted. Sister No problems noted. Sister No problems noted. Sister No problems noted. Son No problems noted. Daughter No problems noted. Daughter No problems noted. Social History Social History Housing: Other Alcohol intake: never Patient Tobacco Use Status: Current everyday Tobacco user Cigarettes Per Day: 3 Advance Directives: No Advance Directives Information Provided: No Patient : No Current occupational status: employed Physical Exam ED Vital Signs: Vital Signs - 24 hr 10/01/21 09:27 Temperature 96.6 F L Pulse Rate 88 Respiratory Rate 18 Blood Pressure 114/89 Pulse Oximetry 98 BMI result Body Mass Index 24.0 Const General: cooperative, no acute distress, alert and awake Nutritional Appearance: well nourished Orientation/consciousness: patient oriented x3 Limitations: no limitations HENMT Head: Yes normal to inspection and Yes atraumatic Ears: hearing grossly normal bilaterally and external ears normal General nose exam: Normal external nose present, no nasal discharge noted and no epistaxis Face and sinus: Yes normal facial exam, No abrasion and No laceration Mouth: Normal oral and palatal mucosa present, no drooling and no muffled voice Eyes General: appearance normal, both eyes and all related structures Periorbital: periorbital findings normal Eyelids: Yes eyelids normal Conjunctivae: conjunctivae normal Pupils: Equal, round and reactive pupils present EOM: EOMs intact bilaterally Neck Neck: Yes normal visual inspection, Yes full ROM and Yes no lymphadenopathy Chest Chest palpation & inspection: normal inspection of the chest Resp Effort & Inspection: normal respiratory effort and able to speak in complete sentences Auscultation: clear to auscultation bilaterally Cardio Rate: regular rate Rhythm: regular rhythm GI Inspection: Yes normal to inspection Neuro General: patient oriented x3 and moves all extremities Cranial nerves: Yes Equal, round and reactive pupils present Cognition (Neuro): normal cognition Motor exam (neuro): 5/5 motor strength present throughout Sensory Exam: Normal double simultaneous stimulation for sensation Coordination: [id number] test normal Extrem General: Yes normal to inspection, Yes full ROM and Yes capillary refill normal Psych Appearance: grossly normal Mental Status: mental status grossly normal Affect: normal affect Attitude: cooperative Thought process: Normal thought process present Thought content: Normal thought content present Insight: Good insight present (Psych) Procedures Orthopedic Splinting/Casting Injury #1: Side: right Lower Extremity Injury Location: ankle Lower Extremity Immobilizer: AirCast Other Orthopedic Equipment: crutches Medical Decision Making MDM Narrative Medical decision making narrative: Patient is a 41 year old female presenting to the emergency department today with right ankle pain. Patient's physical exam was unremarkable. Patient's ROM, circulation, strength, and sensation were intact to the right lower extremity i ncluding the right toes, right foot, right ankle, right lower leg, right knee, right upper leg, and right hip. Patient's right ankle x-ray showed no acute process. I explained my physical exam findings as well as all test results to the patient. I answered all questions asked by the patient. Patient's right ankle was placed in a splint and she received crutches and crutch training. Patient's PMS was intact prior to and after splint placement on the right ankle. I stressed the importance of the patient taking her medication as prescribed. I stressed the importance of the patient following up with her primary care provider and with an orthopedic provider, as needed. I stressed the importance of the patient returning to the emergency department immediately if her symptoms were to worsen or if she were to develop any dizziness, shortness of breath, difficulty breathing, chest pain, blurry vision, loss of vision, nausea, vomiting, abdominal pain, fever, chills, back pain, or any other complaints. Patient verbalized agreement and understanding with this treatment plan and discharge. Differential Diagnosis Differential Diagnosis: Ankle strain, ankle sprain, ankle fracture Medical Records Medical records reviewed: Yes I reviewed the patient's medical records. Imaging Data Ankle x-ray (right): Attestation: I personally reviewed and interpreted this imaging study as follows: My impression: No acute fracture. Radiologist's impression: EXAMINATION: XR ANKLE, RIGHT CLINICAL INFORMATION: Right ankle injury? COMPARISON: None? TECHNIQUE: AP, lateral, and mortise views of the right ankle. FINDINGS: The bones and soft tissues are normal. No fracture. Alignment is anatomic. Joint spaces are maintained. No joint effusion.? XR/XR ankle RT 2V IMPRESSION: Normal right ankle. Dictated By: Katherine Palafox MD Signed By: Electronically signed by Katherine Palafox MD 10/01/21 1014 Discharge Plan Discharge Clinical Impression: Right ankle injury, Ankle sprain and strain Patient Disposition: Home, Self-Care Instructions: Ankle Sprain (ED), Crutch Instructions (ED) Additional Instructions: Follow up with your primary care provider. Return to the emergency department immediately if your symptoms worsen or if you develop any dizziness, shortness of breath, difficulty breathing, chest pain, blurry vision, loss of vision, nausea, vomiting, abdominal pain, fever, chills, back pain, or any other complaints. Prescriptions: No Action medroxyprogesterone [Depo-Provera] 150 mg/mL suspension 150 mg IM [id number] Qty: 1 1RF Referrals: [facility] [Provider Group] (Follow up with an orthopedic provider if pain persists longer than 2 weeks. ) Amadeo Alvarado MD [Primary Care Provider] - (Follow up with your PCP as needed. ) Print Language: Occitan
== END 2021-10-01 10:51 | disposition home or self-care (01) ==
PROVIDERS: Emergency Provider Emergency Medicine; PCP Internal Medicine
DX: S99.911A Unspecified injury of right ankle, initial encounter (principal); S93.401A Sprain of unspecified ligament of right ankle, initial encounter; S96.911A Strain of unspecified muscle and tendon at ankle and foot level, right foot, initial encounter; W01.198A Fall on same level from slipping, tripping and stumbling with subsequent striking against other object, initial encounter; Y93.9 Activity, unspecified; Y92.9 Unspecified place or not applicable; Y99.0 Civilian activity done for income or pay
CPT/HCPCS: 73600; 99283

== ENCOUNTER → 2021-10-24 13:18 | Outpatient (BNVA) | payer OTHER, SELFPAY | PROVIDERS: Visit Provider Advanced Practice Midwife | DX: Z13.89 Encounter for screening for other disorder (principal) ==

== ENCOUNTER → 2021-10-25 14:55 | Outpatient (BNVA) | payer OTHER, SELFPAY | PROVIDERS: Visit Provider Advanced Practice Midwife | DX: Z30.42 Encounter for surveillance of injectable contraceptive (principal); N92.1 Excessive and frequent menstruation with irregular cycle | CPT/HCPCS: 96372; 99211 ==

== ENCOUNTER → 2021-11-22 15:18 | Outpatient (BNVA) | payer OTHER, SELFPAY | PROVIDERS: PCP Internal Medicine; Referring Provider Internal Medicine; Visit Provider Surgery | DX: N64.52 Nipple discharge (principal); G89.29 Other chronic pain; N64.4 Mastodynia; Z80.3 Family history of malignant neoplasm of breast | CPT/HCPCS: 99212 ==

== ENCOUNTER 2021-12-13 14:15 | Outpatient (REF) | payer OTHER, SELFPAY ==
--- NOTE | ~2021-12-13 | MM_ITS ---
EXAMINATION: MM DIAGNOSTIC DIGITAL BREAST TOMOSYNTHESIS, BILATERAL US DIAGNOSTIC ULTRASOUND BREAST, BILATERAL CLINICAL INFORMATION: 41-year-old with history chronic anterior bilateral breast pain and yellow discharge. History sebaceous cysts excised. Family history breast cancer, maternal grandmother. The lifetime risk of breast cancer based on the Tyrer-Cuzick Model is 13%. COMPARISON: Mammography: 12/07/2020, 11/29/2020, 10/13/2019, left breast ultrasound 12/07/2020, bilateral breast MRI 2020. TECHNIQUE: Digital breast tomosynthesis is performed in both the craniocaudal and mediolateral oblique views along with computer-aided detection (CAD). Synthesized 2D images are generated from the tomosynthesis. Additional spot right CC view is obtained. Ultrasound bilateral breasts is targeted to the retroareolar and periareolar regions. Grayscale imaging and color Doppler are performed without and with harmonics. FINDINGS: There are scattered areas of fibroglandular density (ACR BI-RADS breast composition Category b). There are no significant masses, abnormal calcifications, or other abnormalities. Known cyst posterior 12:30 o'clock left breast is stable. Incompletely compressed glandular tissue anterior outer right breast on CC view shows no persistent density on additional spot projection. There is no skin thickening. The bilateral axilla are unremarkable. No significant changes. Ultrasound bilateral breasts demonstrate no cystic or solid mass, architectural abnormality, or focal duct ectasia. No focal skin thickening or intradermal lesion or edema tracking in soft tissue planes. Results are discussed with the patient at time of visit, using an certified court interpreter. MM/MM tomosynthesis diagnostic BI IMPRESSION: -No mammographic evidence of malignancy or inflammatory changes. -Unremarkable bilateral breast ultrasound. ASSESSMENT: BI-RADS 2: Benign RECOMMENDATION: 1. Patient should be managed based on the clinical impression. If clinically indicated, further evaluation for chronic bilateral nipple discharge could be performed with laboratories for endocrine systemic etiology. 2. Otherwise, routine annual screening mammography. This patient's information was entered into a reminder system with a target due date for their next mammogram.
== END 2021-12-13 14:16 | disposition home or self-care (01) ==
LOC: HO.MAMMO 14:15
PROVIDERS: PCP Internal Medicine; Visit Provider Surgery
DX: N64.4 Mastodynia (principal); G89.29 Other chronic pain; N64.52 Nipple discharge; Z80.3 Family history of malignant neoplasm of breast
CPT/HCPCS: 76642; 77062; 77066

== ENCOUNTER 2021-12-18 11:37 | Outpatient (REF) | payer OTHER, SELFPAY ==
[2021-12-18 14:24] LABS: CT PCR NOT DETECTED (Not Detect.); NG PCR NOT DETECTED (Not Detect.)
[2021-12-19 10:04] LABS: BV Int Neg Control Negative (Negative); BV Int Pos Control Positive (Positive)
== END 2021-12-18 11:38 | disposition home or self-care (01) ==
LOC: HO.LAB 11:37
PROVIDERS: Visit Provider Advanced Practice Midwife
DX: Z11.3 Encounter for screening for infections with a predominantly sexual mode of transmission (principal); R10.2 Pelvic and perineal pain
CPT/HCPCS: 87480; 87491; 87510; 87591; 87660

== ENCOUNTER → 2022-01-16 14:43 | Outpatient (BNVA) | payer OTHER, SELFPAY | PROVIDERS: PCP Internal Medicine; Visit Provider Advanced Practice Midwife | DX: Z30.42 Encounter for surveillance of injectable contraceptive (principal) | CPT/HCPCS: 96372; 99211 ==